=== PATIENT | female | born 1935 | race Caucasian/White ===

== ENCOUNTER → 2023-01-20 13:00 | Outpatient (CLI) | payer MEDICARE, OTHER, SELFPAY ==
[2022-04-29 20:17] VITALS: BMI 25.4
== END ==
LOC: LAB 03-24 13:00
PROVIDERS: PCP Family Medicine; Referring Provider Physician Assistant; Visit Provider Physician Assistant
DX: R19.5 Other fecal abnormalities (principal)
CPT/HCPCS: 87045; 87177; 87899

== ENCOUNTER → 2023-04-14 09:45 | Outpatient (CLI) | payer MEDICARE, OTHER, SELFPAY ==
[2022-04-29 20:17] VITALS: BMI 25.4
[2023-04-14 19:09] LABS: HEMOLYSIS 21 (0-50); Iron 77 ug/dL (37-170)
[2023-04-14 19:13] LABS: BUN Creatinine Ratio 48.4 (6-22); Blood Urea Nitrogen 30 mg/dL (7-17); Calcium 9.3 mg/dL (8.4-10.2); Carbon Dioxide 33 mmol/L (22-32); Chloride 99 mmol/L (98-107); Cholesterol 201 mg/dL (140-199); Estimated Glomerular Filt Rate > 60 mL/min (>60); Glucose 105 mg/dL (80-110); HDL Cholesterol 62 mg/dL (40-60); HEMOLYSIS < 15 (0-50); LDL Cholesterol Calculated 130 mg/dL (<100); Potassium 4.1 mmol/L (3.4-5.1); Sodium 138 mmol/L (137-145); Triglycerides 46 mg/dL (35-150)
[2023-04-14 19:24] LABS: Percent Iron Saturation 18 % (15-50); Total Iron Binding Capacity 430 ug/dL (265-497); Transferrin 364 mg/dL (206-381)
[2023-04-14 19:52] LABS: Hematocrit 39.5 % (36-46); Hemoglobin 12.5 g/dL (12.0-16.0); Mean Corpuscular HGB Conc 31.7 % (30-36); Mean Corpuscular Hemoglobin 24.4 PG (26-34); Mean Corpuscular Volume 76.9 fL (80-100); Red Blood Cell Count 5.14 X10^6/uL (4.0-5.2); Red Cell Distribution Width 20.6 % (11.6-14.8); White Blood Cell Count 2.7 X10^3/uL (4.5-11.0)
[2023-04-14 19:59] LABS: Add Manual Diff / Slide Review YES
[2023-04-14 20:15] LABS: Neutrophils Absolute Manual 1566 /uL (3000-5900); Total Cells Counted 50
[2023-04-14 20:16] LABS: Microcytosis 1+; Platelet Estimate Decreased on smear; Poikilocytosis 1+
[2023-04-14 20:17] LABS: Folate > 20.0 ng/mL (2.76-20.0); Vitamin B12 993 pg/mL (239-931)
== END ==
PROVIDERS: PCP Family Medicine; Visit Provider Family Medicine
DX: D61.818 Other pancytopenia (principal); I65.22 Occlusion and stenosis of left carotid artery; E03.9 Hypothyroidism, unspecified; I48.91 Unspecified atrial fibrillation; I50.9 Heart failure, unspecified; E78.2 Mixed hyperlipidemia
CPT/HCPCS: 80048; 80061; 82607; 82746; 83540; 83550; 85007; 85025